=== PATIENT | female | born 1930 | race Caucasian/White ===

== ENCOUNTER 2018-08-07 10:39 | Inpatient (IN) | payer MEDICARE, OTHER ==
[~2018-08-07] VITALS: Ht 157.5 cm; Wt 70.0 kg
[2018-08-07 10:43] VITALS: Ht 157.5 cm; Wt 70.0 kg
--- NOTE | 2018-08-07 12:18 | ERD ---
ER Documentation Chief Complaint Chief Complaint COUGH , CHEST CONGESTION X 2 WEEKS , SENT BY PMD HPI Patient is an 88-year-old female with hypertension who presents with cough and shortness of breath. The patient was sent by the primary clinic for admission for a right lower lobe pneumonia. The patient had low oxygen. The patient had high blood pressure. The patient has no fevers. Symptoms have been there including productive cough for 2 weeks. ROS All systems reviewed and are negative except as per history of present illness. Allergies Allergies: Coded Allergies: No Known Allergy (Unverified , 08/07/18) PMhx/Soc Medical and Surgical Hx: pt denies Surgical Hx Hx Cardiac Disorders: Yes (htn) Hx Miscellaneous Medical Probl: No Hx Alcohol Use: Yes (social) Hx Substance Use: No Hx Tobacco Use: No Smoking Status: Never smoker FmHx Family History: diabetes Physical Exam Vitals Vital Signs Date Temp Pulse Resp B/P (MAP) Pulse Ox O2 O2 Flow FiO2 Time Delivery Rate 08/07/18 Nasal 2 10:51 Cannula 08/07/18 99.0 95 22 201/76 96 10:43 (117) 08/07/18 85 24 129/88 98 Nasal 3.0 10:40 (102) Cannula 08/07/18 Nasal 3.0 10:40 Cannula Physical Exam Const: No acute distress Head: Atraumatic Eyes: Normal Conjunctiva ENT: Normal External Ears, Nose and Mouth. Neck: Full range of motion. No meningismus. Resp: Decreased breath sounds bilaterally Cardio: Regular rate and rhythm, no murmurs Abd: Soft, non tender, non distended. Normal bowel sounds Skin: No petechiae or rashes Back: No midline or flank tenderness Ext: No cyanosis, or edema Neur: Awake and alert Psych: Normal Mood and Affect Result Diagram: 08/07/18 1111 08/07/18 1111 Results 24 hrs Laboratory Tests Test 08/07/18 11:11 08/07/18 11:15 White Blood Count 10.4 10^3/ul Red Blood Count 4.18 10^6/ul Hemoglobin 12.8 g/dl Hematocrit 39.2 % Mean Corpuscular Volume 93.8 fl Mean Corpuscular Hemoglobin 30.6 pg Mean Corpuscular Hemoglobin Concent 32.7 g/dl Red Cell Distribution Width 14.0 % Platelet Count 333 10^3/UL Mean Platelet Volume 9.5 fl Immature Granulocytes % 0.500 % Neutrophils % 59.6 % Lymphocytes % 29.5 % Monocytes % 8.6 % Eosinophils % 1.4 % Basophils % 0.4 % Nucleated Red Blood Cells % 0.0 /100WBC Immature Granulocytes # 0.050 10^3/ul Neutrophils # 6.2 10^3/ul Lymphocytes # 3.1 10^3/ul Monocytes # 0.9 10^3/ul Eosinophils # 0.2 10^3/ul Basophils # 0.0 10^3/ul Nucleated Red Blood Cells # 0.0 10^3/ul Sodium Level 141 mmol/L Potassium Level 3.7 mmol/L Chloride Level 102 mmol/L Carbon Dioxide Level 28 mmol/L Anion Gap 11 Blood Urea Nitrogen 9 mg/dl Creatinine 0.57 mg/dl Est Glomerular Filtrat Rate mL/min mL/min Glucose Level 98 mg/dl Calcium Level 9.7 mg/dl Troponin I < 0.012 ng/ml POC Venous Lactate 1.5 mmol/L Current Medications Medications Dose Sig/David Start Time Status Last (Trade) Ordered Route PRN Stop Time Admin Dose Reason Admin 650 mg ONCE ONCE 08/07/18 Acetaminophen PO 12:30 08/07/18 (Tylenol 12:31 Tab) Procedures/MDM Chest x-ray read by radiology. Patient is an 88-year-old female presents with cough that is productive and shortness of breath. She had hypoxia as well. She will be admitted to the care of Dr. Francisco from the panel team to a medical surgical bed. The patient was given cephalexin and Zithromax empirically. I doubt sepsis at this time. Initial lactic acid is normal. Blood cultures are pending. I doubt pneumothorax or pulmonary embolism. Departure Diagnosis: Primary Impression: Pneumonia Pneumonia type: due to unspecified organism Laterality: right Lung location: lower lobe of lung Qualified Codes: J18.1 - Lobar pneumonia, unspecified organism Additional Impression: Hypoxia Condition: LOIS Gamez MD Aug 07, 2018 12:18
[2018-08-07] MEDS ORDERED: ACETAMINOPHEN 325 MG TAB PO ONE (12:30)
[2018-08-07] MEDS ORDERED: ACETAMINOPHEN 325 MG TAB PO PRN ×2 (12:30→13:30)
[2018-08-07] MEDS ORDERED: ONDANSETRON 4 MG INJ IV PRN ×2 (12:30→13:30)
--- NOTE | 2018-08-07 13:18 | HP ---
Date/Time of Note Date/Time of Note DATE: 08/07/18 TIME: 13:18 Assessment/Plan VTE Prophylaxis SCD applied (from Nsg): Yes Pharmacological prophylaxis: NA/contraindicated Pharm contraindication: other (Reported history of melena.) Lines/Catheters IV Catheter Type (from Nrs): Saline Lock Assessment/Plan Hospital Course 88-year-old female with comorbidities including hypertension and arthritis who was sent from her primary care physician's office because of dyspnea and cough. 1. Chronic cough with dyspnea. -Etiology unclear. -Chest x-ray showing cardiomegaly with hilar vascular crowding. -Obtain a 2D echocardiogram to evaluate for any underlying heart failure. -Start gentle diuresis. -Start inhaled bronchodilators. -The patient has no leukocytosis or febrile illness. Less likely infectious process. 2. Hypertension. -Start the patient on antihypertensives. -Obtain medication list from the patient's family. 3. Arthritis. -Start analgesics. Plan: The patient will be admitted to inpatient medical surgical floor. The patient will be started on a regular diet. The patient will be started on DVT prophylaxis. The patient will remain a full code. Activities will be as tolerated. The rest of the patient's management will be based on the clinical course and the results of diagnostic studies. Based on the patient's clinical presentation, she most probably requires at least 1 midnight's stay for further management and evaluation of her clinical presentation. The patient was seen in collaboration with Dr. Francisco. Result Diagram: 08/07/18 1111 08/07/18 1111 Results 24hrs Laboratory Tests Test 08/07/18 11:11 08/07/18 11:15 White Blood Count 10.4 Red Blood Count 4.18 L Hemoglobin 12.8 Hematocrit 39.2 Mean Corpuscular Volume 93.8 Mean Corpuscular Hemoglobin 30.6 Mean Corpuscular Hemoglobin Concent 32.7 Red Cell Distribution Width 14.0 Platelet Count 333 Mean Platelet Volume 9.5 Immature Granulocytes % 0.500 H Neutrophils % 59.6 Lymphocytes % 29.5 Monocytes % 8.6 Eosinophils % 1.4 Basophils % 0.4 Nucleated Red Blood Cells % 0.0 Immature Granulocytes # 0.050 H Neutrophils # 6.2 Lymphocytes # 3.1 H Monocytes # 0.9 Eosinophils # 0.2 Basophils # 0.0 Nucleated Red Blood Cells # 0.0 Sodium Level 141 Potassium Level 3.7 Chloride Level 102 Carbon Dioxide Level 28 Anion Gap 11 Blood Urea Nitrogen 9 Creatinine 0.57 Est Glomerular Filtrat Rate mL/min Glucose Level 98 Calcium Level 9.7 Troponin I < 0.012 POC Venous Lactate 1.5 HPI/ROS Admit Date/Time Admit Date/Time Hx of Present Illness Reason for admission: Sent in from a doctor's office for further evaluation of dyspnea and cough. This is a 88-year-old female with a past medical history of hypertension and arthritis. The patient is a poor historian and details were obtained from the patient family member who was at the bedside. The patient apparently was not seeing any primary care provider for the past 9 months. The patient had multiple complaints and specifically the complaint was productive cough for the past 2 weeks. Therefore, the patient was taken to the primary care provider. The patient had denied any fevers or chills. The patient verbalized the cough is productive. The patient also verbalized dyspnea. The patient denied any nausea, vomiting, fevers, chills, chest pain, abdominal pain, diarrhea, hematochezia, dysuria, urinary frequency, or urinary urgency. In the emergency room, the patient's chest x-ray was showing cardiomegaly and hilar vascular crowding. The patient was afebrile. The patient had no leukocytosis. The patient's basic metabolic panel was within normal limits. ROS Constitutional: no complaints Eyes: no complaints ENT: congestion Respiratory: cough, shortness of breath, sputum Cardiovascular: no complaints Gastrointestinal: no complaints Genitourinary: no complaints Musculoskeletal: bone/joint pain Skin: no complaints Neurologic: no complaints Endocrine: no complaints Lymphatic: no complaints Psychological: no complaints Immunologic: no complaints PMH/Family/Social Past Medical History 1. Hypertension. 2. Arthritis. Medications Current Medications Ondansetron HCl (Zofran Inj) 4 mg BRIDGE ORDER PRN IV NAUSEA/VOMITING; Start 08/07/18 at 12:30; Stop 08/08/18 at 12:29 Acetaminophen (Tylenol Tab) 650 mg ER BRIDGE PRN PO .MILD PAIN 1-3 OR TEMP; Start 08/07/18 at 12:30; Stop 08/08/18 at 12:29 Coded Allergies: No Known Allergy (Unverified , 08/07/18) Past Surgical History Abdominal hernia repair. Social History Alcohol Use: none Smoking Status: Never smoker Drug Use: none Exam/Review of Systems Vital Signs Vitals Vital Signs Date Temp Pulse Resp B/P (MAP) Pulse Ox O2 O2 Flow FiO2 Time Delivery Rate 08/07/18 98.3 84 22 129/88 100 Nasal 2.0 12:16 (102) Cannula Exam Exam General: Adequately build 88 year-old female lying in bed in mild respiratory distress. HEENT: Normocephalic, atraumatic. Eyes: Anicteric sclerae, conjunctivae clear. ENT: Nasal septum midline, oral mucosa moist. Neck supple, JVD noticed. Respiratory: Bilaterally diminished breath sounds. Minimal use of accessory muscles of respiration. Bibasilar rales. Cardiovascular: S1, S2 heard. Regular rate and rhythm. Abdomen: Soft, nontender, and nondistended. Bowel sounds positive in all 4 quadrants. Genitourinary: Deferred. Extremities: No cyanosis, no clubbing, no edema. Peripheral pulses palpable. Neurologic: Cranial nerves II through XII grossly intact. The patient is awake, alert, and oriented. Skin: Normal skin turgor. No skin rashes. JULIÁN TOMLINSON NP Aug 07, 2018 13:18
[2018-08-07] MEDS ORDERED: hydrALAzine 20 MG INJ IV PRN (13:30)
[2018-08-07] MEDS ORDERED: FUROSEMIDE 20 MG INJ IV ONE (13:30)
[2018-08-07] MEDS ORDERED: NACL 0.9% 3 ML SYG IV SCH (13:30)
[2018-08-07] MEDS ORDERED: CITA10TA5 PO (13:59)
[2018-08-07] MEDS ORDERED: HYDR12.58 PO (13:59)
[2018-08-07] MEDS ORDERED: LOSA50TA14 PO (13:59)
[2018-08-07 14:00] VITALS: BP 148/80; PULSE 100; RESP 20
[2018-08-07] MEDS ORDERED: PRAM0.25 PO (14:00)
[2018-08-07] MEDS: ALBUTEROL/IPRATROPIUM (NEB) 3 ML AMP HHN SCH ×3 (14:00→20:19)
[2018-08-07] MEDS ORDERED: TRAM50TA PO (14:01)
[2018-08-07] MEDS ORDERED: OMEP20CA16 PO (14:01)
[2018-08-07] MEDS: PRAMIPEXOLE 0.25 MG TAB PO SCH (20:20)
[2018-08-07 20:21] VITALS: BP 139/63; PULSE 78; RESP 18
[2018-08-08] MEDS: GUAIFENESIN 20 MG/ML 5ML CUP PO PRN ×4 (01:50→23:55)
[2018-08-08 02:59] VITALS: BP 132/62; PULSE 71; RESP 20
[2018-08-08] MEDS: ALBUTEROL/IPRATROPIUM (NEB) 3 ML AMP HHN SCH ×3 (07:59→19:50)
[2018-08-08 08:00] VITALS: BP 132/62; PULSE 69; RESP 20
[2018-08-08] MEDS: LOSARTAN 50 MG TAB PO SCH (09:08)
[2018-08-08] MEDS: CITALOPRAM 20 MG TAB PO SCH (09:08)
[2018-08-08] MEDS: FUROSEMIDE 20 MG INJ IV SCH (09:09)
[2018-08-08] MEDS: traMADol 50 MG TAB PO PRN ×3 (09:13→23:54)
--- NOTE | 2018-08-08 11:08 | PN ---
Date/Time of Note Date/Time of Note DATE: 08/08/18 TIME: 11:04 Assessment/Plan VTE Prophylaxis Risk score (from Ns)>0 risk: 4 SCD applied (from Ns): Yes Pharmacological prophylaxis: NA/contraindicated Pharm contraindication: other (Reported history of melena.) Lines/Catheters [facility] Saline Lock Urinary Cath still in place: No Assessment/Plan Hospital Course SUBJECTIVE: Continues to have cough, although less. OBJECTIVE: Physical Exam General: Adequately build 88 year-old female lying in bed in mild respiratory distress. HEENT: Normocephalic, atraumatic. Eyes: Anicteric sclerae, conjunctivae clear. ENT: Nasal septum midline, oral mucosa moist. Neck supple, JVD noticed. Respiratory: Bilaterally diminished breath sounds. Minimal use of accessory muscles of respiration. Bibasilar rales. Cardiovascular: S1, S2 heard. Regular rate and rhythm. Abdomen: Soft, nontender, and nondistended. Bowel sounds positive in all 4 quadrants. Genitourinary: Deferred. Extremities: No cyanosis, no clubbing, no edema. Peripheral pulses palpable. Neurologic: Cranial nerves II through XII grossly intact. The patient is awake, alert, and oriented. Skin: Normal skin turgor. No skin rashes. Labs & Vitals per chart ASSESSMENT & PLAN 88-year-old female with comorbidities including hypertension and arthritis who was sent from her primary care physician's office because of dyspnea and cough. 1. Chronic cough with dyspnea. -Etiology unclear. -Chest x-ray showing cardiomegaly with hilar vascular crowding. -Pending 2D echocardiogram to evaluate for any underlying heart failure. -Continue gentle diuresis. -Continue inhaled bronchodilators. -The patient has no leukocytosis or febrile illness. Less likely infectious process. 2. Hypertension. -Continue the patient on antihypertensives. -Obtain medication list from the patient's family. 3. Arthritis. -Continue analgesics. 4. Prediabetes. -Hemoglobin A1c 6.4. -Monitor glycemic trends. 5. Fluids, electrolytes, and nutrition. -Regular diet. 6. DVT prophylaxis. -Bilateral SCDs. 7. Plan. -Continue current management. -Await 2D echocardiogram. The patient was seen in collaboration with Dr. Francisco. Result Diagram: 08/08/18 0549 08/08/18 0549 Results 24hrs Laboratory Tests Test 08/07/18 11:11 08/07/18 11:15 08/07/18 16:24 08/08/18 05:49 White Blood Count 10.4 6.7 # Red Blood Count 4.18 L 3.95 L Hemoglobin 12.8 12.0 Hematocrit 39.2 36.7 L Mean Corpuscular Volume 93.8 92.9 Mean Corpuscular 30.6 30.4 Hemoglobin Mean Corpuscular 32.7 32.7 Hemoglobin Concent Red Cell Distribution 14.0 14.3 Width Platelet Count 333 308 Mean Platelet Volume 9.5 9.7 Immature Granulocytes % 0.500 H 0.700 H Neutrophils % 59.6 50.8 Lymphocytes % 29.5 33.9 Monocytes % 8.6 11.1 H Eosinophils % 1.4 2.8 Basophils % 0.4 0.7 Nucleated Red Blood 0.0 0.0 Cells % Immature Granulocytes # 0.050 H 0.050 H Neutrophils # 6.2 3.4 Lymphocytes # 3.1 H 2.3 Monocytes # 0.9 0.8 Eosinophils # 0.2 0.2 Basophils # 0.0 0.1 Nucleated Red Blood 0.0 0.0 Cells # Erythrocyte 59 H Sedimentation Rate Sodium Level 141 142 Potassium Level 3.7 4.0 Chloride Level 102 103 Carbon Dioxide Level 28 32 H Anion Gap 11 7 Blood Urea Nitrogen 9 18 # Creatinine 0.57 0.69 Est Glomerular Filtrat Rate mL/min Glucose Level 98 120 Hemoglobin A1c 6.4 H Calcium Level 9.7 9.4 Troponin I < 0.012 < 0.012 C-Reactive Protein < 0.5 B-Type Natriuretic 200 125 Peptide Thyroid Stimulating 1.040 Hormone (TSH) POC Venous Lactate 1.5 Lactic Acid Level 1.2 Free Thyroxine 1.12 Phosphorus Level 4.5 Magnesium Level 2.0 Total Bilirubin 0.2 Direct Bilirubin 0.00 Indirect Bilirubin 0.2 Aspartate Amino 24 Transf (AST/SGOT) Alanine 13 Aminotransferase (ALT/SG PT) Alkaline Phosphatase 79 Creatine Kinase 49 Creatine Kinase Index 1.7 Creatinine Kinase MB 0.81 (Mass) Total Protein 7.4 Albumin 3.6 Globulin 3.80 H Albumin/Globulin Ratio 0.94 Triglycerides Level 121 Cholesterol Level 179 LDL Cholesterol, 116 Calculated HDL Cholesterol 39 Cholesterol/HDL Ratio 4.5 Exam/Review of Systems Exam Vitals Vital Signs Date Temp Pulse Resp B/P (MAP) Pulse Ox O2 O2 Flow FiO2 Time Delivery Rate 08/08/18 Nasal 2.0 09:51 Cannula 08/08/18 69 98 08:09 08/08/18 98.6 20 132/62 08:00 (85) Intake and Output 08/07/18 08/07/18 08/08/18 1515:00 23:00 07:00 IntakeIntake Total 350 ml BalanceBalance 350 ml Results Results 24hrs Laboratory Tests Test 08/07/18 11:11 08/07/18 11:15 08/07/18 16:24 08/08/18 05:49 White Blood Count 10.4 6.7 # Red Blood Count 4.18 L 3.95 L Hemoglobin 12.8 12.0 Hematocrit 39.2 36.7 L Mean Corpuscular Volume 93.8 92.9 Mean Corpuscular 30.6 30.4 Hemoglobin Mean Corpuscular 32.7 32.7 Hemoglobin Concent Red Cell Distribution 14.0 14.3 Width Platelet Count 333 308 Mean Platelet Volume 9.5 9.7 Immature Granulocytes % 0.500 H 0.700 H Neutrophils % 59.6 50.8 Lymphocytes % 29.5 33.9 Monocytes % 8.6 11.1 H Eosinophils % 1.4 2.8 Basophils % 0.4 0.7 Nucleated Red Blood 0.0 0.0 Cells % Immature Granulocytes # 0.050 H 0.050 H Neutrophils # 6.2 3.4 Lymphocytes # 3.1 H 2.3 Monocytes # 0.9 0.8 Eosinophils # 0.2 0.2 Basophils # 0.0 0.1 Nucleated Red Blood 0.0 0.0 Cells # Erythrocyte 59 H Sedimentation Rate Sodium Level 141 142 Potassium Level 3.7 4.0 Chloride Level 102 103 Carbon Dioxide Level 28 32 H Anion Gap 11 7 Blood Urea Nitrogen 9 18 # Creatinine 0.57 0.69 Est Glomerular Filtrat Rate mL/min Glucose Level 98 120 Hemoglobin A1c 6.4 H Calcium Level 9.7 9.4 Troponin I < 0.012 < 0.012 C-Reactive Protein < 0.5 B-Type Natriuretic 200 125 Peptide Thyroid Stimulating 1.040 Hormone (TSH) POC Venous Lactate 1.5 Lactic Acid Level 1.2 Free Thyroxine 1.12 Phosphorus Level 4.5 Magnesium Level 2.0 Total Bilirubin 0.2 Direct Bilirubin 0.00 Indirect Bilirubin 0.2 Aspartate Amino 24 Transf (AST/SGOT) Alanine 13 Aminotransferase (ALT/SG PT) Alkaline Phosphatase 79 Creatine Kinase 49 Creatine Kinase Index 1.7 Creatinine Kinase MB 0.81 (Mass) Total Protein 7.4 Albumin 3.6 Globulin 3.80 H Albumin/Globulin Ratio 0.94 Triglycerides Level 121 Cholesterol Level 179 LDL Cholesterol, 116 Calculated HDL Cholesterol 39 Cholesterol/HDL Ratio 4.5 Medications Medication Current Medications Ondansetron HCl (Zofran Inj) 4 mg BRIDGE ORDER PRN IV NAUSEA/VOMITING; Start 08/07/18 at 12:30; Stop 08/08/18 at 12:29 Acetaminophen (Tylenol Tab) 650 mg ER BRIDGE PRN PO .MILD PAIN 1-3 OR TEMP; Start 08/07/18 at 12:30; Stop 08/08/18 at 12:29 IV Flush (NS 3 ml) 3 ml PER PROTOCOL IV ; Start 08/07/18 at 13:30 Ondansetron HCl (Zofran Inj) 4 mg Q6H PRN IV NAUSEA/VOMITING; Start 08/07/18 at 13:30 Acetaminophen (Tylenol Tab) 650 mg Q6H PRN PO .PAIN 1-3 OR TEMP Last administered on 08/08/18 01:50; Admin Dose 650 MG; Start 08/07/18 at 13:30 Hydralazine HCl (Apresoline) 10 mg Q6H PRN IV SBP>160; Start 08/07/18 at 13:30 Albuterol/ Ipratropium (Duoneb) 3 ml Q6HWA RESP THERAPY HHN Last administered on 08/08/18at 07:59; Admin Dose 3 ML; Start 08/07/18 at 14:00 Tramadol HCl (Ultram) 50 mg Q6H PRN PO MODERATE PAIN LEVEL 4-6 Last administered on 08/08/18 09:13; Admin Dose 50 MG; Start 08/07/18 at 13:30 Guaifenesin (Robitussin Liquid Cup) 100 mg Q4H PRN PO COUGH Last administered on 08/08/18 09:12; Admin Dose 100 MG; Start 08/07/18 at 13:30 Furosemide (Lasix) 20 mg DAILY IV Last administered on 08/08/18 09:09; Admin Dose 20 MG; Start 08/08/18 at 09:00 Citalopram Hydrobromide (Celexa) 10 mg DAILY PO Last administered on 08/08/18at 09:08; Admin Dose 10 MG; Start 08/08/18 at 09:00 Losartan Potassium (Cozaar) 50 mg DAILY PO Last administered on 08/08/18at 09:08; Admin Dose 50 MG; Start 08/08/18 at 09:00 Pramipexole (Mirapex) 0.25 mg HS PO Last administered on 08/07/18at 20:20; Admin Dose 0.25 MG; Start 08/07/18 at 21:00 JULIÁN TOMLINSON NP Aug 08, 2018 11:08
[2018-08-08 14:00] VITALS: BP 128/64; PULSE 80; RESP 18
[2018-08-08 20:56] VITALS: BP 135/64; PULSE 69; RESP 20
[2018-08-08] MEDS: PRAMIPEXOLE 0.25 MG TAB PO SCH (21:55)
[2018-08-09 02:57] VITALS: BP 138/64; PULSE 65; RESP 20
[2018-08-09] MEDS: ALBUTEROL/IPRATROPIUM (NEB) 3 ML AMP HHN SCH ×3 (08:00→20:25)
--- NOTE | 2018-08-09 08:37 | RADRPT ---
Echocardiogram Report Patient Name: Mulu TAVERAS ID: [id number] : 1930 (88y 1m)Study Date: 08/08/2018 7:05:38 AM Gender: FAccession #: [id number] Tech: JungBe Whiting [facility] Location: 6560 Ref.Physician: JULIÁN TOMLINSON Height(Cm): BSA: Weight(Kg): Quality: AdequateAccount #: Procedures: Echocardiographic Report: Transthoracic echocardiogram with complete 2D, M-Mode, and doppler examination. Indications: Evaluate Left Ventricular function. Measurements: 2D/M Mode Doppler Measurement Value Normal Range Measurement Value Normal Range LVIDd 2D 3.8 [ 3.8 - 5.2 ] cm ASHISH VTI 1.6 [ 2.0 - 4.0 ] cm2 LVIDs 2D 2.3 [ 2.2 - 3.5 ] cm AV Mean Carson 1.7 [ 70.0 - 90.0 ] cm/sec LVPWd 2D 1.3 [ 0.6 - 0.9 ] cm AV Mean PG 13.0 [ 2.0 - 4.0 ] mmHg IVSd 2D 1.3 [ 0.6 - 0.9 ] cm AV VTI 57.0 cm AoR Diam 2D 2.5 [ 2.3 - 3.1 ] cm AI Peak PG 70.0 mmHg EDV 2D 63.5 [ 46.0 - 106.0 ] ml AI Peak Carson 4.2 cm/sec ESV 2D 17.7 [ 14.0 - 42.0 ] ml AI PHT 695.0 msec EF 2D 72.1 [ 54.0 - 74.0 ] percent LVOT Mean Carson 0.9 [ 60.0 - 80.0 ] cm/sec LA Dimen 2D 3.1 [ 2.7 - 3.8 ] cm LVOT Mean PG 4.0 [ 1.0 - 3.0 ] mmHg LVOT Diam 1.9 [ 2.1 - 2.5 ] cm LVOT Peak Carson 1.3 [ 70.0 - 110.0 ] cm/sec LVOT Peak PG 7.0 [ 2.0 - 6.0 ] mmHg LVOT VTI 32.3 [ 20.0 - 30.0 ] cm MV E Peak Carson 0.5 [ 60.0 - 130.0 ] cm/sec MV A Peak Carson 0.7 [ 100.0 - 120.0 ] cm/sec MV E/A 0.8 [ 0.8 - 1.5 ] ratio MV Decel Time 173 [ 104 - 258 ] msec Lat E` Carson 0.1 [ 10.0 - 15.0 ] cm/sec Lateral E/E` 10.6 [ 1.0 - 2.0 ] ratio MV E/A 0.8 [ 0.8 - 1.5 ] ratio TR Peak Carson 1.9 [ 100.0 - 280.0 ] cm/sec TR Peak PG 14.0 mmHg RVSP 24.0 [ 10.0 - 36.0 ] mmHg RA Pressure 10.0 mmHg Findings: Left Ventricle: Normal left ventricular systolic function. Normal left ventricular cavity size. Moderate concentric left ventricular hypertrophy. Ejection fraction is visually estimated at 65 %. Tissue Doppler/Mitral Doppler indices are consistent with impaired relaxation (Stage I diastolic dysfunction). Right Ventricle: Normal right ventricular size. Normal right ventricular systolic function. Left Atrium: The left atrium is normal in size. Right Atrium: The right atrium is normal in size. Mitral Valve: Mitral valve leaflets appear mildly thickened. Mild mitral annular calcification. Trace mitral regurgitation. Aortic Valve: Aortic valve Max velocity 2.47 m/sec. Max PG 25.00 mmHg. Mean PG 13.00 mmHg. Aortic valve area 1.61 cm2. Aortic sclerosis without significant stenosis. Mild to moderate aortic valve regurgitation. Tricuspid Valve: Normal appearance of the tricuspid valve. Estimated peak PA systolic pressure 24 mmHg. There is trace tricuspid regurgitation. Pulmonic Valve: Normal pulmonic valve appearance. There is trace pulmonic regurgitation. Pericardium: Normal pericardium with no significant pericardial effusion. Aorta: Normal aortic root. IVC: Normal size and normal respiratory collapse consistent with normal right atrial pressure. Conclusions: Normal left ventricular systolic function. Normal left ventricular cavity size. Moderate concentric left ventricular hypertrophy. Ejection fraction is visually estimated at 65 %. Tissue Doppler/Mitral Doppler indices are consistent with impaired relaxation (Stage I diastolic dysfunction). Mitral valve leaflets appear mildly thickened. Mild mitral annular calcification. Trace mitral regurgitation. Aortic valve Max velocity 2.47 m/sec. Max PG 25.00 mmHg. Mean PG 13.00 mmHg. Aortic valve area 1.61 cm2. Aortic sclerosis without significant stenosis. Mild to moderate aortic valve regurgitation. Normal appearance of the tricuspid valve. Estimated peak PA systolic pressure 24 mmHg. There is trace tricuspid regurgitation. Electronically Signed By: Jensen Mike 2018-08-09 08:36:24 PST
--- NOTE | 2018-08-09 08:39 | RADRPT ---
Vent Rate: 66 bpm RR Interval: 0 msec OR Interval: 212 msec QRS Duration: 92 msec QT Interval: 412 msec QTC Interval: 431 msec P-R-T [place]: 77 - 21 - 37 degrees Sinus rhythm with 1st degree AV block LVH Abnormal ECG Electronically Signed By: Jensen Mike
[2018-08-09] MEDS: CITALOPRAM 20 MG TAB PO SCH (08:42)
[2018-08-09] MEDS: LOSARTAN 50 MG TAB PO SCH (08:42)
[2018-08-09] MEDS: FUROSEMIDE 20 MG INJ IV SCH (08:43)
--- NOTE | 2018-08-09 11:24 | PN ---
Date/Time of Note Date/Time of Note DATE: 08/09/18 TIME: 11:22 Assessment/Plan VTE Prophylaxis Risk score (from N[place])>0 risk: 5 [place] [facility] [place] Pharmacological prophylaxis: NA/contraindicated Pharm contraindication: other (Reported history of melena.) Lines/Catheters IV C[facility]ter Type (from [facility] Saline Lock Urinary Cath still in place: No Assessment/Plan Hospital Course SUBJECTIVE: Dyspnea improved. Complains of occasional palpitations. OBJECTIVE: Physical Exam General: Adequately build 88 year-old female lying in bed in mild respiratory distress. HEENT: Normocephalic, atraumatic. Eyes: Anicteric sclerae, conjunctivae clear. ENT: Nasal septum midline, oral mucosa moist. Neck supple, JVD noticed. Respiratory: Bilaterally diminished breath sounds. Minimal use of accessory muscles of respiration. Bibasilar rales. Cardiovascular: S1, S2 heard. Regular rate and rhythm. Abdomen: Soft, nontender, and nondistended. Bowel sounds positive in all 4 quadrants. Genitourinary: Deferred. Extremities: No cyanosis, no clubbing, no edema. Peripheral pulses palpable. Neurologic: Cranial nerves II through XII grossly intact. The patient is awake, alert, and oriented. Skin: Normal skin turgor. No skin rashes. Labs & Vitals per chart ASSESSMENT & PLAN 88-year-old female with comorbidities including hypertension and arthritis who was sent from her primary care physician's office because of dyspnea and cough. 1. Chronic cough with dyspnea. -Etiology unclear. -Chest x-ray showing cardiomegaly with hilar vascular crowding. -2D echocardiogram showing preserved left ventricular ejection fraction, but mi ld to moderate AVR. -Continue gentle diuresis. -Continue inhaled bronchodilators. -The patient has no leukocytosis or febrile illness. Less likely infectious process. 2. Diastolic heart failure. -Possible acute onset. -Obtain cardiology consult. 3. Hypertension. -Continue the patient on antihypertensives. 4. Arthritis. -Continue analgesics. 5. Prediabetes. -Hemoglobin A1c 6.4. -Monitor glycemic trends. 6. Fluids, electrolytes, and nutrition. -Regular diet. 7. DVT prophylaxis. -Bilateral SCDs. 8. Plan. -Continue current management. -Obtain cardiology consult. The patient was seen in collaboration with Dr. Francisco. Result Diagram: 08/09/18 0435 08/09/18 0435 Results 24hrs Laboratory Tests Test 08/09/18 04:35 White Blood Count 7.4 Red Blood Count 3.96 L Hemoglobin 11.9 L Hematocrit 37.1 Mean Corpuscular Volume 93.7 Mean Corpuscular Hemoglobin 30.1 Mean Corpuscular Hemoglobin Concent 32.1 Red Cell Distribution Width 14.3 Platelet Count 315 Mean Platelet Volume 9.7 Immature Granulocytes % 0.800 H Neutrophils % 47.0 Lymphocytes % 35.2 Monocytes % 12.8 H Eosinophils % 3.5 Basophils % 0.7 Nucleated Red Blood Cells % 0.0 Immature Granulocytes # 0.060 H Neutrophils # 3.5 Lymphocytes # 2.6 Monocytes # 1.0 H Eosinophils # 0.3 Basophils # 0.1 Nucleated Red Blood Cells # 0.0 Sodium Level 139 Potassium Level 4.1 Chloride Level 99 Carbon Dioxide Level 31 Anion Gap 9 Blood Urea Nitrogen 17 Creatinine 0.61 Est Glomerular Filtrat Rate mL/min Glucose Level 117 Calcium Level 9.5 Phosphorus Level 4.3 Magnesium Level 2.0 Exam/Review of Systems Exam Vitals Vital Signs Date Temp Pulse Resp B/P (MAP) Pulse Ox O2 O2 Flow FiO2 Time Delivery Rate 08/09/18 Nasal 2.0 10:47 Cannula 08/09/18 72 16 98 08:02 08/09/18 98.0 138/64 02:57 (88) Intake and Output 08/08/18 08/08/18 08/09/18 1515:00 23:00 07:00 IntakeIntake Total 350 ml 400 ml BalanceBalance 350 ml 400 ml Results Results 24hrs Laboratory Tests Test 08/09/18 04:35 White Blood Count 7.4 Red Blood Count 3.96 L Hemoglobin 11.9 L Hematocrit 37.1 Mean Corpuscular Volume 93.7 Mean Corpuscular Hemoglobin 30.1 Mean Corpuscular Hemoglobin Concent 32.1 Red Cell Distribution Width 14.3 Platelet Count 315 Mean Platelet Volume 9.7 Immature Granulocytes % 0.800 H Neutrophils % 47.0 Lymphocytes % 35.2 Monocytes % 12.8 H Eosinophils % 3.5 Basophils % 0.7 Nucleated Red Blood Cells % 0.0 Immature Granulocytes # 0.060 H Neutrophils # 3.5 Lymphocytes # 2.6 Monocytes # 1.0 H Eosinophils # 0.3 Basophils # 0.1 Nucleated Red Blood Cells # 0.0 Sodium Level 139 Potassium Level 4.1 Chloride Level 99 Carbon Dioxide Level 31 Anion Gap 9 Blood Urea Nitrogen 17 Creatinine 0.61 Est Glomerular Filtrat Rate mL/min Glucose Level 117 Calcium Level 9.5 Phosphorus Level 4.3 Magnesium Level 2.0 Medications Medication Current Medications IV Flush (NS 3 ml) 3 ml PER PROTOCOL IV ; Start 08/07/18 at 13:30 Ondansetron HCl (Zofran Inj) 4 mg Q6H PRN IV NAUSEA/VOMITING; Start 08/07/18 at 13:30 Acetaminophen (Tylenol Tab) 650 mg Q6H PRN PO .PAIN 1-3 OR TEMP Last administered on 08/08/18 01:50; Admin Dose 650 MG; Start 08/07/18 at 13:30 Hydralazine HCl (Apresoline) 10 mg Q6H PRN IV SBP>160; Start 08/07/18 at 13:30 Albuterol/ Ipratropium (Duoneb) 3 ml Q6HWA RESP THERAPY HHN Last administered on 08/09/18 08:00; Admin Dose 3 ML; Start 08/07/18 at 14:00 Tramadol HCl (Ultram) 50 mg Q6H PRN PO MODERATE PAIN LEVEL 4-6 Last administered on 08/08/18 23:54; Admin Dose 50 MG; Start 08/07/18 at 13:30 Guaifenesin (Robitussin Liquid Cup) 100 mg Q4H PRN PO COUGH Last administered on 08/08/18 23:55; Admin Dose 100 MG; Start 08/07/18 at 13:30 Furosemide (Lasix) 20 mg DAILY IV Last administered on 08/09/18 08:43; Admin Dose 20 MG; Start 08/08/18 at 09:00 Citalopram Hydrobromide (Celexa) 10 mg DAILY PO Last administered on 08/09/18 08:42; Admin Dose 10 MG; Start 08/08/18 at 09:00 Losartan Potassium (Cozaar) 50 mg DAILY PO Last administered on 08/09/18 08:42; Admin Dose 50 MG; Start 08/08/18 at 09:00 Pramipexole (Mirapex) 0.25 mg HS PO Last administered on 08/08/18 21:55; Admin Dose 0.25 MG; Start 08/07/18 at 21:00 JULIÁN TOMLINSON NP Aug 09, 2018 11:24
[2018-08-09 14:00] VITALS: BP 136/76; PULSE 72; RESP 20
[2018-08-09 20:23] VITALS: BP 131/63; PULSE 82; RESP 18
[2018-08-09] MEDS: PRAMIPEXOLE 0.25 MG TAB PO SCH (21:56)
[2018-08-10 02:35] VITALS: BP 122/56; PULSE 75; RESP 18
--- NOTE | 2018-08-10 07:36 | CONS ---
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 Lasix daily for now Repeat the chest x-ray Continue with the losartan DC planning for today Patient to follow-up with me next week Thank you for his referral. We will continue to follow along with you VAIBHAV OROZCO MD [facility] Consultation Date/Type/Reason Admit Date/Time Date of Consultation: Aug 10, 2018 Type of Consult Cardiology Reason for Consultation Dyspnea rule out CHF, aortic valve disorder Requesting Provider: JULIÁN TOMLINSON NP Date/Time of Note DATE: 08/10/18 TIME: 07:29 Hx of Present Illness Interventional cardiology consultation note Chief complaint: sent in from a doctor's office for further evaluation of dyspnea and cough. Reason for consult: Aortic valve disorder, rule out CHF History of present illness: Thank you for this referral. History was obtained from the patient was extremely poor historian for review of the chart discussion with physician staff This is a 88-year-old female with a history of hypertension who was sent from her primary doctor's office for evaluation of her shortness of breath and cough The patient is a poor historian and and does not know why she is here and she said she was sent here only by her primary doctor. Patient apparently has complained of shortness of breath and cough has been treated as an outpatient but did not work and was sent to the hospital for evaluation. Initial chest x- ray has showed poor respiration as well as pulmonary vascular congestion. The patient had denied any fevers or chills. The patient has verbalized the cough i s productive. The patient also verbalized dyspnea. Patient denies any left-sided chest pain or pressure to me. At this point, the left arm pain at the site of the IV She has been started on Lasix IV and apparently has had good urine output per her own report although I do not does not include recorded Allergies: No known drug allergies Medications were reviewed as per medical reconciliation sheet Family history: No history of early coronary artery disease Social history: Does not smoke or drink Past medical history: Hypertension arthritis Review of system: Patient denies all others except for above-mentioned Past Medical History Home Meds Reported Medications Tramadol Hcl* (Ultram*) 50 Mg Tablet, 50 MG PO NEEDED PRN for PAIN, TAB 08/07/18 Omeprazole* (Omeprazole*) 20 Mg Capsule.dr, 20 MG PO DAILY, #30 CAP 08/07/18 Pramipexole* (Pramipexole*) 0.25 Mg Tablet, 0.25 MG PO HS, TAB 08/07/18 Citalopram Hydrobromide* (Citalopram Hydrobromide*) 10 Mg Tablet, 10 MG PO DAILY, #30 TAB 08/07/18 Losartan Potassium* (Losartan Potassium*) 50 Mg Tablet, 50 MG PO DAILY, TAB 08/07/18 Hydrochlorothiazide* (Hydrochlorothiazide*) 12.5 Mg Tablet, 12.5 MG PO DAILY, #30 TAB 08/07/18 Medications Current Medications IV Flush (NS 3 ml) 3 ml PER PROTOCOL IV ; Start 08/07/18 at 13:30 Ondansetron HCl (Zofran Inj) 4 mg Q6H PRN IV NAUSEA/VOMITING; Start 08/07/18 at 13:30 Acetaminophen (Tylenol Tab) 650 mg Q6H PRN PO .PAIN 1-3 OR TEMP Last administered on 08/08/18at 01:50; Admin Dose 650 MG; Start 08/07/18 at 13:30 Hydralazine HCl (Apresoline) 10 mg Q6H PRN IV SBP>160; Start 08/07/18 at 13:30 Albuterol/ Ipratropium (Duoneb) 3 ml Q6HWA RESP THERAPY HHN Last administered on 08/09/18at 20:25; Admin Dose 3 ML; Start 08/07/18 at 14:00 Tramadol HCl (Ultram) 50 mg Q6H PRN PO MODERATE PAIN LEVEL 4-6 Last administered on 08/08/18at 23:54; Admin Dose 50 MG; Start 08/07/18 at 13:30 Guaifenesin (Robitussin Liquid Cup) 100 mg Q4H PRN PO COUGH Last administered on 08/08/18at 23:55; Admin Dose 100 MG; Start 08/07/18 at 13:30 Furosemide (Lasix) 20 mg DAILY IV Last administered on 08/09/18at 08:43; Admin Dose 20 MG; Start 08/08/18 at 09:00 Citalopram Hydrobromide (Celexa) 10 mg DAILY PO Last administered on 08/09/18at 08:42; Admin Dose 10 MG; Start 08/08/18 at 09:00 Losartan Potassium (Cozaar) 50 mg DAILY PO Last administered on 08/09/18at 08:42; Admin Dose 50 MG; Start 08/08/18 at 09:00 Pramipexole (Mirapex) 0.25 mg HS PO Last administered on 08/09/18at 21:56; Admin Dose 0.25 MG; Start 08/07/18 at 21:00 Allergies: Coded Allergies: No Known Allergy (Unverified , 08/07/18) Social History Alcohol Use: none Smoking Status: Never smoker Drug Use: none Exam/Review of Systems Vital Signs Vitals Vital Signs Date Temp Pulse Resp B/P (MAP) Pulse Ox O2 O2 Flow FiO2 Time Delivery Rate 08/10/18 3.0 04:28 08/10/18 98.5 75 18 122/56 100 02:35 (78) 08/09/18 Nasal 20:27 Cannula Intake and Output 08/09/18 08/09/18 08/10/18 1515:00 23:00 07:00 IntakeIntake Total 800 ml 350 ml 350 ml BalanceBalance 800 ml 350 ml 350 ml Exam Exam General: Elderly obese female in no acute distress HEENT: NC/AT. pupils are equal. round. NECK: NO JVD. no stridor. CV: RRR. systolic /diastolic murmur; no gallop or rubs. PULM: no wheezing or rhonchi. GI: SOFT, NT, ND, no rebound or guarding Extremity: trace B/L LE edema. no clubbing. neuro: awake and alert, OX3. Psych: calm and pleasant rectal: deferred Minimal voltage criteria for LVH Chest x-ray was personally reviewed which per radiology report shows: No acute cardiopulmonary disease. Low lung volumes with cardiomegaly and hilar vascular crowding. Moderate hiatal hernia. Echocardiogram done August 08, 2018 was personally reviewed which shows Normal left ventricular systolic function. Normal left ventricular cavity size. Moderate concentric left ventricular hypertrophy. Ejection fraction is visually estimated at 65 %. Tissue Doppler/Mitral Doppler indices are consistent with impaired relaxation (Stage I diastolic dysfunction). Mitral valve leaflets appear mildly thickened. Mild mitral annular calcification. Trace mitral regurgitation. Aortic valve Max velocity 2.47 m/sec. Max PG 25.00 mmHg. Mean PG 13.00 mmHg. Aortic valve area 1.61 cm2. Aortic sclerosis without significant stenosis. Mild to moderate aortic valve regurgitation. Normal appearance of the tricuspid valve. Estimated peak PA systolic pressure 24 mmHg. There is trace tricuspid regurgitation. Labs Result Diagram: 08/10/18 0515 08/10/18 0515 Results 24hrs Laboratory Tests Test 08/10/18 05:15 White Blood Count 7.4 Red Blood Count 3.89 L Hemoglobin 11.7 L Hematocrit 36.9 L Mean Corpuscular Volume 94.9 Mean Corpuscular Hemoglobin 30.1 Mean Corpuscular Hemoglobin Concent 31.7 L Red Cell Distribution Width 14.3 Platelet Count 316 Mean Platelet Volume 9.8 Immature Granulocytes % 0.800 H Neutrophils % 54.7 Lymphocytes % 28.8 Monocytes % 11.5 H Eosinophils % 3.5 Basophils % 0.7 Nucleated Red Blood Cells % 0.0 Immature Granulocytes # 0.060 H Neutrophils # 4.0 Lymphocytes # 2.1 Monocytes # 0.9 Eosinophils # 0.3 Basophils # 0.1 Nucleated Red Blood Cells # 0.0 Sodium Level 139 Potassium Level 4.5 Chloride Level 101 Carbon Dioxide Level 31 Anion Gap 7 Blood Urea Nitrogen 19 Creatinine 0.59 Est Glomerular Filtrat Rate mL/min Glucose Level 126 Calcium Level 9.4 Phosphorus Level 3.7 Magnesium Level 2.1 Medications Medications Current Medications IV Flush (NS 3 ml) 3 ml PER PROTOCOL IV ; Start 08/07/18 at 13:30 Ondansetron HCl (Zofran Inj) 4 mg Q6H PRN IV NAUSEA/VOMITING; Start 08/07/18 at 13:30 Acetaminophen (Tylenol Tab) 650 mg Q6H PRN PO .PAIN 1-3 OR TEMP Last administered on 08/08/18at 01:50; Admin Dose 650 MG; Start 08/07/18 at 13:30 Hydralazine HCl (Apresoline) 10 mg Q6H PRN IV SBP>160; Start 08/07/18 at 13:30 Albuterol/ Ipratropium (Duoneb) 3 ml Q6HWA RESP THERAPY HHN Last administered on 08/09/18at 20:25; Admin Dose 3 ML; Start 08/07/18 at 14:00 Tramadol HCl (Ultram) 50 mg Q6H PRN PO MODERATE PAIN LEVEL 4-6 Last administered on 08/08/18 23:54; Admin Dose 50 MG; Start 08/07/18 at 13:30 Guaifenesin (Robitussin Liquid Cup) 100 mg Q4H PRN PO COUGH Last administered on 08/08/18 23:55; Admin Dose 100 MG; Start 08/07/18 at 13:30 Furosemide (Lasix) 20 mg DAILY IV Last administered on 08/09/18 08:43; Admin Dose 20 MG; Start 08/08/18 at 09:00 Citalopram Hydrobromide (Celexa) 10 mg DAILY PO Last administered on 08/09/18 08:42; Admin Dose 10 MG; Start 08/08/18 at 09:00 Losartan Potassium (Cozaar) 50 mg DAILY PO Last administered on 08/09/18 08:42; Admin Dose 50 MG; Start 08/08/18 at 09:00 Pramipexole (Mirapex) 0.25 mg HS PO Last administered on 08/09/18 21:56; Admin Dose 0.25 MG; Start 08/07/18 at 21:00 VAIBHAV OROZCO MD Aug 10, 2018 07:36
[2018-08-10] MEDS ORDERED: FUROSEMIDE 20 MG TAB PO SCH (07:45)
[2018-08-10 08:14] VITALS: BP 133/63; PULSE 65; RESP 18
[2018-08-10] MEDS: CITALOPRAM 20 MG TAB PO SCH (08:26)
[2018-08-10] MEDS: LOSARTAN 50 MG TAB PO SCH (08:26)
[2018-08-10] MEDS: ALBUTEROL/IPRATROPIUM (NEB) 3 ML AMP HHN SCH ×2 (09:30→13:18)
[2018-08-10] MEDS ORDERED: POLYETHYLENE GLYCOL 17 GM PACKET PO SCH (10:00)
[2018-08-10] MEDS ORDERED: BISACODYL (EC) 5 MG TAB PO ONE (10:00)
[2018-08-10 14:00] VITALS: BP 114/57; PULSE 98; RESP 18
[2018-08-10] MEDS ORDERED: LAS20 PO (15:23)
--- NOTE | 2018-08-10 15:26 | PDOCDIS ---
Discharge Instructions CONDITION [id number] Patient Condition: [id number] Stable HOME CARE INSTRUCTIONS: [id number] Diet Instructions: [id number] Low Fat /Cholesterol FOLLOW UP/APPOINTMENTS Follow-up Plan eJnsen Mike MD Specialty: Cardiology Office Address [address] [facility] [address] [place] [id number] Office OTHER ORDERS: Other Orders: 1. Resume home medications. Stop taking hydrochlorothiazide. Start taking Lasix. 2. Take a low-cholesterol, low carbohydrate diet. 3. Resume activities as tolerated. 4. Follow-up with cardiology (Dr. Mike) on 08/13/2018 @ 09;30 AM. Please bring all your medications to the doctor's office. 5. Please go to the nearest emergency room if you have any chest pain, shortness of breath, or any other unusual signs/symptoms. JULIÁN TOMLINSON NP Aug 10, 2018 15:26
--- NOTE | 2018-08-10 16:35 | DS ---
Date/Time of Note Date/Time of Note DATE: 08/10/18 TIME: 16:33 Discharge Summary Admission/Discharge Info Admit Date/Time Aug 07, 2018 at 12:16 Discharge Date/Time Discharge Diagnosis 1. Acute diastolic heart failure. 2. Hypertension. 3. Arthritis. 4. Prediabetes. Hemoglobin A1c 6.4. Patient Condition: Stable Consults 1. Jensen Mike MD, Cardiology. Procedures 2D Echocardiogram Conclusions: Normal left ventricular systolic function. Normal left ventricular cavity size. Moderate concentric left ventricular hypertrophy. Ejection fraction is visually estimated at 65 %. Tissue Doppler/Mitral Doppler indices are consistent with impaired relaxation (Stage I diastolic dysfunction). Mitral valve leaflets appear mildly thickened. Mild mitral annular calcification. Trace mitral regurgitation. Aortic valve Max velocity 2.47 m/sec. Max PG 25.00 mmHg. Mean PG 13.00 mmHg. Aortic valve area 1.61 cm2. Aortic sclerosis without significant stenosis. Mild to moderate aortic valve regurgitation. Normal appearance of the tricuspid valve. Estimated peak PA systolic pressure 24 mmHg. There is trace tricuspid regurgitation. CXR on 08/10/2018 IMPRESSION: Clear lungs. Mildly atherosclerotic aorta. Hx of Present Illness Reason for admission: Sent in from a doctor's office for further evaluation of dyspnea and cough. This is a 88-year-old female with a past medical history of hypertension and arthritis. The patient is a poor historian and details were obtained from the patient family member who was at the bedside. The patient apparently was not seeing any primary care provider for the past 9 months. The patient had multiple complaints and specifically the complaint was productive cough for the past 2 weeks. Therefore, the patient was taken to the primary care provider. The patient had denied any fevers or chills. The patient verbalized the cough is productive. The patient also verbalized dyspnea. The patient denied any nausea, vomiting, fevers, chills, chest pain, abdominal pain, diarrhea, hematochezia, dysuria, urinary frequency, or urinary urgency. In the emergency room, the patient's chest x-ray was showing cardiomegaly and hilar vascular crowding. The patient was afebrile. The patient had no leukocytosis. The patient's basic metabolic panel was within normal limits. Hospital Course The patient was admitted to inpatient setting. Etiology of the patient's chronic cough with dyspnea was evaluated. The patient's chest x-ray that was done in the emergency room was showing cardiomegaly with hilar vascular crowding. Therefore, congestive heart failure (systolic versus diastolic) was suspected. Therefore, the patient was started on diuresis. The patient was also started on inhaled bronchodilators. The patient was provided with supplemental oxygen. The patient was maintained on antitussives. It was concluded that the patient less likely have any infectious process since the patient did not have any leukocytosis or febrile illness. The patient had a 2D echocardiogram that was showing preserved left ventricular ejection fraction but mild to moderate aortic valve regurgitation. The patient had evidence of diastolic failure. The patient was maintained on diuretic therapy with improvement in the patient's symptoms. The etiology of the patient's presentation could-most probably secondary to diastolic heart failure. The patient was later evaluated by folder inspector who agreed with the treatment plan. The patient needs outpatient cardiology follow-up upon discharge. Outpatient cardiology follow-up was confirmed with the folder inspector who followed the patient in the hospital. The patient's chronic problems include hypertension. The patient was maintained on antihypertensives for the same. The patient also has arthritis. The patient was maintained on PRN analgesics. The patient has underlying prediabetes. The patient was noted to have a hemoglobin A1c of 6.4. The patient's glycemic trends were within normal limits. The patient was advised on a low carbohydrate diet. The patient's symptomatology improved well. The patient was evaluated by physical therapy. Physical therapy recommended home health for home physical therapy and home safety evaluation. This was ordered ordered by case management. The patient is stable to be discharged home today. Discharge Instructions 1. Resume home medications. Stop taking hydrochlorothiazide. Start taking Lasix. 2. Take a low-cholesterol, low carbohydrate diet. 3. Resume activities as tolerated. 4. Follow-up with cardiology (Dr. Mike) on 08/13/2018 @ 09;30 AM. Please bring all your medications to the doctor's office. 5. Please go to the nearest emergency room if you have any chest pain, shortness of breath, or any other unusual signs/symptoms. The patient's family verbalized understanding of the discharge instructions. The patient was seen in collaboration with Dr. Francisco. 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 HELPER 08/10/18 Reported Medications Tramadol Hcl* (Ultram*) 50 Mg Tablet, 50 MG PO NEEDED PRN for PAIN, TAB 08/07/18 Omeprazole* (Omeprazole*) 20 Mg Capsule.dr, 20 MG PO DAILY, #30 CAP 08/07/18 Pramipexole* (Pramipexole*) 0.25 Mg Tablet, 0.25 MG PO HS, TAB 08/07/18 Citalopram Hydrobromide* (Citalopram Hydrobromide*) 10 Mg Tablet, 10 MG PO DAILY, #30 TAB 08/07/18 Losartan Potassium* (Losartan Potassium*) 50 Mg Tablet, 50 MG PO DAILY, TAB 08/07/18 Discontinued Reported Medications Hydrochlorothiazide* (Hydrochlorothiazide*) 12.5 Mg Tablet, 12.5 MG PO DAILY, #30 TAB 08/07/18 Follow-up Plan Jensen Mike MD Specialty: Cardiology Office Address [address] [place] [address] [place] [id number] Office Primary Care Provider Care Physician No Primary Time spent on discharge: > 30 minutes Pending Labs Laboratory Tests Test 08/10/18 05:15 White Blood Count 7.4 10^3/ul (4.8-10.8) Red Blood Count 3.89 10^6/ul (4.20-5.40) Hemoglobin 11.7 g/dl (12.0-16.0) Hematocrit 36.9 % (37.0-47.0) Mean Corpuscular Volume 94.9 fl (82.0-101.0) Mean Corpuscular Hemoglobin 30.1 pg (29.0-33.0) Mean Corpuscular Hemoglobin Concent 31.7 g/dl (32.0-37.0) Red Cell Distribution Width 14.3 % (11.5-14.5) Platelet Count 316 10^3/UL (140-415) Mean Platelet Volume 9.8 fl (7.4-10.4) Immature Granulocytes % 0.800 % (0.001-0.429) Neutrophils % 54.7 % (39.0-77.0) Lymphocytes % 28.8 % (15.0-51.0) Monocytes % 11.5 % (0.0-11.0) Eosinophils % 3.5 % (0.0-7.0) Basophils % 0.7 % (0.0-2.0) Nucleated Red Blood Cells % 0.0 /100WBC (0.0-0.0) Immature Granulocytes # 0.060 10^3/ul (0.0-0.031) Neutrophils # 4.0 10^3/ul (1.6-7.5) Lymphocytes # 2.1 10^3/ul (0.8-2.9) Monocytes # 0.9 10^3/ul (0.3-0.9) Eosinophils # 0.3 10^3/ul (0.0-0.5) Basophils # 0.1 10^3/ul (0.0-0.1) Nucleated Red Blood Cells # 0.0 10^3/ul (0.0-0.0) Sodium Level 139 mmol/L (135-144) Potassium Level 4.5 mmol/L (3.5-5.1) Chloride Level 101 mmol/L (97-110) Carbon Dioxide Level 31 mmol/L (21-31) Anion Gap 7 (5-13) Blood Urea Nitrogen 19 mg/dl (7-20) Creatinine 0.59 mg/dl (0.44-1.00) Est Glomerular Filtrat Rate mL/min mL/min (>60) Glucose Level 126 mg/dl (70-220) Calcium Level 9.4 mg/dl (8.4-10.2) Phosphorus Level 3.7 mg/dl (2.5-4.9) Magnesium Level 2.1 mg/dl (1.7-2.5) JULIÁN TOMLINSON NP Aug 10, 2018 16:35
== END 2018-08-10 17:15 | disposition home or self-care (01) | DRG 291 ==
LOC: E/R 10:39 → PP2 12:16
PROVIDERS: ADMIT Internal Medicine; ATTEND Internal Medicine
DX: I11.0 Hypertensive heart disease with heart failure (principal); I50.31 Acute diastolic (congestive) heart failure; I35.1 Nonrheumatic aortic (valve) insufficiency; I35.0 Nonrheumatic aortic (valve) stenosis; J40 Bronchitis, not specified as acute or chronic; M19.90 Unspecified osteoarthritis, unspecified site; R73.03 Prediabetes
CPT/HCPCS: 36415; 71045; 80048; 80053; 80061; 82550; 82553; 83036; 83605; 83735; 83880; 84100; 84439; 84443; 84484; 85025; 85651; 86140; 87040; 87400; 93005; 93306; 94640; 94664; 97161; J1940